=== PATIENT | female | born 1955 | race African-American/Black ===

== ENCOUNTER 2021-03-24 15:16 | Inpatient (IN) | payer MEDICARE, OTHER ==
[~2021-03-24] VITALS: Ht 172.7 cm; Wt 69.5 kg
[2021-03-24] VITALS (132 sets, daily range): BP systolic 96–148; BP diastolic 72–93; PULSE 75–95; O2SAT 45–100
--- NOTE | 2021-03-24 15:09 | NUR ---
RECEIVED REPORT FROM DEISY CARRINGTON AT [facility]. AWAITING ARRIVAL TO ICU 3. DISCUSSED WITH DEISY CONWAYLINE SUPERVISOR IF PT SHOULD BE PLACED ON ISOLATION ONCE ARRIVES HERE, SHE STATES YES D/T RAPID DECLINE FROM ADMISSION OF [facility] AT [facility].
--- NOTE | 2021-03-24 16:28 | NUR ---
RECEIVED REPORT FROM NICCI WITH [facility]. STATES WILL BE AT OUR FACILITY IN ABOUT TEN MINS. PT IS STILL STABLE ACCORDING TO EMS.
--- NOTE | 2021-03-24 16:40 | NUR ---
PT ARRVIES TO ICU 3 ON STRETCHER INTUBATED. PT TRANSFERRED TO ICU BED, PLACED ON FACILITIE'S VENT WITH SETTINGS: AC MODE, TV 400, PEEP 8, RR 20, FIO2 70%. PLACED ON BEDSIDE CONTINUOUS MONITOR. VSS. BOAT OUTFITTER PLACED. SEE IV GTT FLOWSHEET. FC PATENT AND DRAINING TO GRAVITY. OGT NOTED CLAMPED AT 67 CM. ETT 7.5 WITH 22 AT THE TEETH. BILATERAL CHEST RISE NOTED.
[2021-03-24 18:50] LABS: HEMOGLOBIN 10.7 g/dl (12.5-16.0); MEAN CELL VOLUME 82 fl (80.0-100.0); MEAN CORPUSCULAR HEMOGLOBIN 26 pg (27-31); MEAN CORPUSCULAR HGB CONC 32 g/dl (33.0-37.0); MEAN PLATELET VOLUME 11.8 fl (7.4-10.4); PLATELET COUNT 283 K/mm3 (130-400); REDCELL DISTRIBUTION WIDTH-CV 14.5 % (11.5-14.5)
[2021-03-24 18:52] LABS: INR 1.2 (0.8-3.0); PROTHROMBIN TIME 13.6 SECONDS (9.7-12.8)
[2021-03-24 18:53] LABS: PH 6 (5-8); SQUAMOUS EPITHELIAL 0-2 /hpf (0-10); URINE APPEARANCE Clear (CLEAR/HAZY); URINE BACTERIA Rare /hpf (NONE SEEN); URINE BILIRUBIN Negative (NEGATIVE); URINE BLOOD Negative (NEGATIVE); URINE COLOR Colorless (YELLOW); URINE GLUCOSE 3+ (NEGATIVE); URINE KETONE Negative (NEGATIVE); URINE LEUKOCYTE ESTERASE 1+ (NEGATIVE); URINE NITRATE Negative (NEGATIVE); URINE PROTEIN(semi-quant) Negative (NEGATIVE); URINE RBC 0-2 /hpf (0-2); URINE UROBILINOGEN Negative (NEGATIVE)
[2021-03-24 19:00] LABS: BILIRUBIN,TOTAL 0.3 mg/dL (0.2-1.2); C-REACTIVE PROTEIN 20.64 mg/dL (0.00-0.50); CALCIUM 9.1 mg/dL (8.4-10.2); CREATININE, serum 0.95 mg/dL (0.57-1.11); MAGNESIUM 1.8 mg/dL (1.6-2.6); POTASSIUM 4.8 mmol/L (3.5-4.5); TOTAL PROTEIN 6.2 gm/dL (6.2-8.1)
[2021-03-24 19:12] LABS: TROPONIN-I 0.517 ng/mL (0.00-0.033)
[2021-03-24 19:17] LABS: HEMATOCRIT 33.8 % (37.0-47.0)
[2021-03-24 19:24] LABS: LYMPHOCYTE 9 % (20.0-51.0); NEUTROPHILS 89 % (42.0-75.2)
[2021-03-24 19:25] LABS: HYPOCHROMIA 2+
[2021-03-24 19:30] LABS: COLLECTION METHOD CATHETER
[2021-03-24] MEDS ORDERED: GLUCOSE TEST ST1 DEV ×2 (20:20→21:35)
[2021-03-24] MEDS ORDERED: AMOXICILLIN 50500 MG PO (20:22)
[2021-03-24] MEDS ORDERED: JARDIANCE10 (21:37)
[2021-03-24] MEDS ORDERED: PRINIVIL40 MG PO (21:38)
[2021-03-24] MEDS ORDERED: HCTZ 25MG TAB25 MG PO (21:38)
[2021-03-24] MEDS ORDERED: SINGULAIR 110 MG/TAB PO (21:40)
--- NOTE | 2021-03-24 22:57 | NUR ---
BREATH SOUNDS UN-IDENTIFIABLE; EXPIRATORY SOUND I'M NOT SURE WHAT TO LABEL . IT'S DEFINITELY NOT A WHEEZE. PEAK PRESSURES IN LOW 40S. NO KINK IN ET TUBE; PT NOT BITING; SUCTION WAS NON-PRODUCTIVE;
[2021-03-25] VITALS (573 sets, daily range): BP systolic 81–151; BP diastolic 42–86; PULSE 56–83; TEMP 96.4–97; O2SAT 58–100
--- NOTE | 2021-03-25 | NUR ---
TRYING TO REGULATE B/P. USE OF DOPAMINE AT LOW DOSE 2.5 MAINTAINS B/P AT 100 SYSTOLIC/ HOWEVER URINE OUT PUT IS 1700 IN 6 HOURS/ MD NOTIFIED/ ORDERS CHANGE
[2021-03-25 04:28] LABS: MEAN CELL VOLUME 83 fl (80.0-100.0); MEAN CORPUSCULAR HGB CONC 32 g/dl (33.0-37.0); MEAN PLATELET VOLUME 12.2 fl (7.4-10.4); PLATELET COUNT 301 K/mm3 (130-400); RED BLOOD COUNT 3.69 M/mm3 (4.10-5.30); REDCELL DISTRIBUTION WIDTH-CV 14.6 % (11.5-14.5)
[2021-03-25 04:49] LABS: HEMATOCRIT 30.7 % (37.0-47.0); HEMOGLOBIN 9.8 g/dl (12.5-16.0); MEAN CORPUSCULAR HEMOGLOBIN 27 pg (27-31)
[2021-03-25 04:57] LABS: C-REACTIVE PROTEIN 20.74 mg/dL (0.00-0.50); CALCIUM 8.7 mg/dL (8.4-10.2); CREATININE, serum 0.82 mg/dL (0.57-1.11); MAGNESIUM 1.8 mg/dL (1.6-2.6); POTASSIUM 3.9 mmol/L (3.5-4.5)
[2021-03-25 05:08] LABS: TROPONIN-I 6 HR POST INITIAL 0.178 ng/mL (0.00-0.033)
--- NOTE | 2021-03-25 05:14 | NUR ---
PATIENT PRONE NO SEDATION VACATION
[2021-03-25 05:22] LABS: BAND 2 % (0-10); EOSINOPHIL 1 % (0-4); LYMPHOCYTE 9 % (20.0-51.0); NEUTROPHILS 84 % (42.0-75.2)
[2021-03-25 05:23] LABS: ANISOCYTOSIS 1+; OVALOCYTES 1+; POIKILOCYTOSIS 1+
[2021-03-25 05:51] LABS: ARTERIAL BLD GAS O2 SATURATION 93.3 % (92-100); ARTERIAL BLD GAS TCO2 CT 22.1; ARTERIAL BLOOD GAS BASE EXCESS -2.5 (-2-2); ARTERIAL BLOOD GAS HCO3 21.1 meq/L (22-26); ARTERIAL BLOOD GAS PCO2 32.1 mmHg (35-45); ARTERIAL BLOOD GAS PO2 68.8 mmHg (80-100); ARTERIAL BLOOD GAS pH 7.44 (7.35-7.45)
--- NOTE | 2021-03-25 07:00 | NUR ---
RECEIVED REPORT FROM DEISY ACEVES. PT RESTING IN PRONE POSITION WITH VENT SETTINGS: AC, TV 400, PEE 8, RR 20, FIO2 70%. FC PATENT AND DRAINING TO GRAVITY. OGT CLAMPED. SILHOUETTE ARTIST IN PLACE. VSS. SEE GTT FLOWSHEET.
--- NOTE | 2021-03-25 09:21 | NUR ---
PT UNPRONED AT THIS TIME. TOLERATED WELL. VSS.
--- NOTE | 2021-03-25 12:57 | NUR ---
TF STARTED AT 15ML/HR PER ORDERS.
--- NOTE | 2021-03-25 14:10 | NUR ---
SW called patient's spouse Jonathan [phone] to complete intake. Spouse was hesitant to complete intake due to believing that SW was a scammer attempting to obtain patient's personal information. SW provided spouse with call back number and verified credentials with spouse. Spouse called back and intake questions proceeded. After first question for verification spouse asked SW why she was asking all these questions. SW provided information on intake process for all patients. Spouse stated he will call back the same number tomorrow to answer any questions and to ensure the call was not a scam. FRANCIS called nurse in ICU to inquire about conversation with spouse about patient's care. Nurse provided conversation with spouse went okay and there were no noted concerns. SW will continue to follow up with spouse to complete intake.
--- NOTE | 2021-03-25 14:10 | NUR ---
Dr. Chan at bedside to place a femoral line; tolerated well and ok to use per Physician.
--- NOTE | 2021-03-25 15:50 | NUR ---
RIJ CENTRAL LINE PLACED AT [facility] AND LT SUBCLAVIAN CENTRAL LINE PLACED BY DR VERAS LAST NIGHT, WERE BOTH DCd AFTER THE LT FEMORAL CENTRAL LINE WAS IN PLACE, PER DR CHANG. BOTH THE RIJ AND LT SUBCLAVIAN CENTRAL LINES WERE GOING THE WRONG DIRECTION. LAKSHMI PRESSURE HELD TO BOTH SITES AT DIFFERENT TIMES FOR FIVE MINUTES A PIECE. MINIMAL BLEEDING NOTED AT THIS TIME. WILL MONITOR CLOSELY. VSS.
--- NOTE | 2021-03-25 16:30 | NUR ---
PT PRONED AT THIS TIME. PT FOLLOWS COMMANDS AND TURNS HEAD WHEN SPOKEN TO. PT ABLE TO FALL BACK TO SLEEP ONCE SETTLED. TOLERATED WELL. VSS. FIO2 DECREASED TO 50%, PEEP 6.
--- NOTE | 2021-03-25 20:07 | NUR ---
Patient proned and repositioned. Patint intubated and sedated. Tolerating well.
[2021-03-26] VITALS (700 sets, daily range): BP systolic 77–137; BP diastolic 45–86; PULSE 66–96; TEMP 96.9–98.5; O2SAT 77–100
[2021-03-26 06:15] LABS: MEAN CELL VOLUME 85 fl (80.0-100.0); MEAN CORPUSCULAR HGB CONC 31 g/dl (33.0-37.0); MEAN PLATELET VOLUME 12.6 fl (7.4-10.4); PLATELET COUNT 256 K/mm3 (130-400); RED BLOOD COUNT 3.49 M/mm3 (4.10-5.30); REDCELL DISTRIBUTION WIDTH-CV 14.8 % (11.5-14.5)
[2021-03-26 06:20] LABS: HEMATOCRIT 29.8 % (37.0-47.0); HEMOGLOBIN 9.2 g/dl (12.5-16.0); MEAN CORPUSCULAR HEMOGLOBIN 26 pg (27-31)
[2021-03-26 06:36] LABS: C-REACTIVE PROTEIN 9.4 mg/dL (0.00-0.50); CALCIUM 8.1 mg/dL (8.4-10.2); CREATININE, serum 0.79 mg/dL (0.57-1.11); MAGNESIUM 1.9 mg/dL (1.6-2.6); PHOSPHOROUS 2.8 mg/dL (2.3-4.7); POTASSIUM 3.2 mmol/L (3.5-4.5)
--- NOTE | 2021-03-26 06:38 | NUR ---
Patient prone during night. Repositioned. Patient remains on levophed.
[2021-03-26 06:48] LABS: ARTERIAL BLD GAS TCO2 CT 22.2; ARTERIAL BLOOD GAS BASE EXCESS -3.1 (-2-2); ARTERIAL BLOOD GAS HCO3 21.2 meq/L (22-26); ARTERIAL BLOOD GAS PCO2 34.7 mmHg (35-45)
--- NOTE | 2021-03-26 07:00 | NUR ---
RECEIVED REPORT FROM DEISY GARCIA. PT RESTING IN PRONE POSITION. VENT SETTINGS: AC, TV 400, FIO2 50%, PEEP 5, RR 20. FC PATENT AND DRAINING TO GRAVITY. ANNOUNCER IN PLACE. MITTS IN PLACE. OGT WITH TF INFUSING AT 31 ML/HR. VSS. SEE GTT FLOWSHEET.
--- NOTE | 2021-03-26 07:03 | NUR ---
Report given to DEISY Adams
[2021-03-26 07:14] LABS: HYPOCHROMIA 3+; LYMPHOCYTE 11 % (20.0-51.0); NEUTROPHILS 82 % (42.0-75.2); PLATELET ESTIMATE NORMAL (NORMAL)
--- NOTE | 2021-03-26 08:26 | NUR ---
PT UNPRONED AT THIS TIME. TOLERATED WELL.
--- NOTE | 2021-03-26 12:18 | NUR ---
TF INCREASED TO 50 ML/HR PER ORDERS. RESIDUAL 30ML.
--- NOTE | 2021-03-26 15:27 | NUR ---
LT FEMORAL CENTRAL LINE DCd AT THIS TIME PER DR CHANG'S INSTRUCTIONS. LAKSHMI PRESSURE HELD FOR 10 MINS. SOME BLEEDING NOTED. DRESSING REPLACED AND WILL MONITOR CLOSELY FOR FURTHER BLEEDING. VSS. 4X4 AND TEGADERM IN PLACE.
--- NOTE | 2021-03-26 17:25 | NUR ---
PT AROUSES EASILY TO VERBAL STIMULI AND ATTEMPTS TO LIFT SELF OFF BED AND PULLS AGAINST RESTRAINTS. PT NODS HEAD OCCASSIONALLY TO QUESTIONS BUT NOT EVERY TIME. PT ABLE TO FALL BACK TO SLEEP WHEN NOT MESSED WITH.
--- NOTE | 2021-03-26 20:40 | NUR ---
Assessment complete and charted. Patient awakens but not following commands at this time. Repositioned.
[2021-03-27] VITALS (751 sets, daily range): BP systolic 96–136; BP diastolic 58–85; PULSE 71–90; TEMP 97.3–100.5; O2SAT 78–100
[2021-03-27 04:36] LABS: ARTERIAL BLD GAS O2 SATURATION 87.6 % (92-100); ARTERIAL BLOOD GAS BASE EXCESS -1.1 (-2-2); ARTERIAL BLOOD GAS HCO3 22.9 meq/L (22-26); ARTERIAL BLOOD GAS PCO2 36.4 mmHg (35-45); ARTERIAL BLOOD GAS PO2 54.6 mmHg (80-100); ARTERIAL BLOOD GAS pH 7.42 (7.35-7.45)
--- NOTE | 2021-03-27 05:31 | NUR ---
Sedation cut in half since 0503. Tube feeds off. Patient tolerating well. Answering questions.
[2021-03-27 05:52] LABS: MEAN CELL VOLUME 85 fl (80.0-100.0); MEAN CORPUSCULAR HGB CONC 31 g/dl (33.0-37.0); MEAN PLATELET VOLUME 12.4 fl (7.4-10.4); PLATELET COUNT 222 K/mm3 (130-400); RED BLOOD COUNT 3.31 M/mm3 (4.10-5.30); REDCELL DISTRIBUTION WIDTH-CV 14.8 % (11.5-14.5)
[2021-03-27 05:56] LABS: HEMATOCRIT 28.1 % (37.0-47.0); HEMOGLOBIN 8.6 g/dl (12.5-16.0); MEAN CORPUSCULAR HEMOGLOBIN 26 pg (27-31)
[2021-03-27 06:08] LABS: C-REACTIVE PROTEIN 9.3 mg/dL (0.00-0.50); CREATININE, serum 0.74 mg/dL (0.57-1.11); PHOSPHOROUS 1.6 mg/dL (2.3-4.7); POTASSIUM 3.9 mmol/L (3.5-4.5)
--- NOTE | 2021-03-27 06:09 | NUR ---
Patient had uneventful night. Sedation decreased this AM. patient continues to be able to rest without difficulty. BP stable, attempting to decrease levophed. Patient answers yes/no orientation questions correctly.
[2021-03-27 06:49] LABS: BAND 4 % (0-10); LYMPHOCYTE 8 % (20.0-51.0); NEUTROPHILS 85 % (42.0-75.2); PLATELET ESTIMATE NORMAL (NORMAL)
--- NOTE | 2021-03-27 07:23 | NUR ---
Report given to DEISY De Guzman
--- NOTE | 2021-03-27 08:30 | NUR ---
LEVOPHED STOPPED AT THIS TIME.
--- NOTE | 2021-03-27 09:00 | NUR ---
PATIENT DOES NOT DO WELL DURING WEANING TRIAL. SHE BECOMES TACHYPNEIC AND DRAWS LOW TIDAL VOLUMES.
--- NOTE | 2021-03-27 10:34 | NUR ---
key worker spoke with patient's spouse and confirmed patient's insurance as Medicare A/B and . Spouse verbalizes understanding of social workers role. Patient's primary care provider is Dr Mikaela Soares in [place], [place]. Spouse states that patient is retired and has been independent with all of her activities of daily living.
--- NOTE | 2021-03-27 11:00 | NUR ---
PATIENT DOING WELL WITHOUT LEVOPHED. SHE WAKES EASILY. ANSWERS YES/NO QUESTIONS APPROPRIATELY. FOLLOWS COMMANDS. WILL CONTINUE TO MONITOR.
--- NOTE | 2021-03-27 12:30 | NUR ---
UPDATE GIVEN TO DADA, DAUGHTER. PLAN OF CARE DISCUSSED AND QUESTIONS ANSWERED. SHE STATES THAT SHE WILL PASS ON THE UPDATE TO HER FATHER, PATIENT'S , CARI.
--- NOTE | 2021-03-27 18:00 | NUR ---
PATIENT DID WELL ON SPONTANEOUS BREATHING TRIAL THIS AFTERNOON. SEDATION WAS SHUT COMPLETELY OFF AND THEN PLACED IN SPONTANEOUS MODE WITH PRESSURE SUPPORT OF 8 AND PEEP OF 5. PATIENT DID WELL FOR APPROX 2 HRS, BUT THEN BECAME TACHYPNEIC WITH RR IN 50s. PATIENT PLACED BACK IN AC/VC MODE. ODD PIECE CHECKER AWARE OF SBT.
--- NOTE | 2021-03-27 19:45 | NUR ---
Assessment complete and charted. Patient alert and following commands.
[2021-03-28] VITALS (734 sets, daily range): BP systolic 91–127; BP diastolic 58–74; PULSE 65–93; TEMP 98.1–99.1; O2SAT 77–100
[2021-03-28 04:09] LABS: ARTERIAL BLD GAS O2 SATURATION 92.6 % (92-100); ARTERIAL BLD GAS TCO2 CT 22.9; ARTERIAL BLOOD GAS HCO3 21.7 meq/L (22-26); ARTERIAL BLOOD GAS PCO2 37.9 mmHg (35-45); ARTERIAL BLOOD GAS PO2 65.1 mmHg (80-100); ARTERIAL BLOOD GAS pH 7.38 (7.35-7.45)
--- NOTE | 2021-03-28 05:27 | NUR ---
Patient alert and orientated and follow commands on current sedation. Patient to attempt weaning trial this AM.
[2021-03-28 05:45] LABS: MEAN CELL VOLUME 88 fl (80.0-100.0); MEAN CORPUSCULAR HGB CONC 30 g/dl (33.0-37.0); MEAN PLATELET VOLUME 11.8 fl (7.4-10.4); PLATELET COUNT 166 K/mm3 (130-400); RED BLOOD COUNT 2.91 M/mm3 (4.10-5.30); REDCELL DISTRIBUTION WIDTH-CV 14.9 % (11.5-14.5)
[2021-03-28 05:49] LABS: HEMATOCRIT 25.7 % (37.0-47.0); HEMOGLOBIN 7.7 g/dl (12.5-16.0); MEAN CORPUSCULAR HEMOGLOBIN 26 pg (27-31)
[2021-03-28 06:00] LABS: C-REACTIVE PROTEIN 7.92 mg/dL (0.00-0.50); CALCIUM 7.8 mg/dL (8.4-10.2); CREATININE, serum 0.62 mg/dL (0.57-1.11); POTASSIUM 4.2 mmol/L (3.5-4.5)
--- NOTE | 2021-03-28 07:00 | NUR ---
RECEIVED REPORT FROM DEISY GARCIA. PER REPORT, PT HAS BEEN ON WANING TRIAL WITH SEDATION DOWN SINCE 544. PT AWAKE AND BREATHING ABOUT 30 BPM. HR 90-100. AIRPORT TRAFFIC CONTROLLER IN PLACE. VENT FIO2 AT 45%. FC PATENT AND DRAINING TO GRAVITY. TF WAS PLACED ON HOLD AT THE TIME OF WEANING TRIAL. SEE GTT FLOWSHEET.
--- NOTE | 2021-03-28 07:11 | NUR ---
Report given to DEIYS Adams
--- NOTE | 2021-03-28 08:25 | NUR ---
DR CHANG AT BEDSIDE FOR ASSESSMENT. STATES IS NOT EXTUBATING TODAY BUT WOULD LIKE PT TO RIDE ON THE WEANING TRIAL LONG SHE REMAINS CALM AND VSS. WILL MONITOR CLOSELY. PROVIDER ALSO STATES CAN RESTART TF AT THIS TIME. TF RESTARTED AT 50ML/HR PER ORDERS.
--- NOTE | 2021-03-28 08:50 | NUR ---
PER DR CHANG, INCREASED PEEP TO 8, R/T CXR AND ABG RESULTS THIS AM. VSS. PT REMAINS ON WEANING TRIAL. SEDATION REMAINS THE SAME, SEE GTT FLOWSHEET.
--- NOTE | 2021-03-28 09:21 | NUR ---
patient will not be extubated today, and will remain on cpap/psupp trial for as long as she can tolerate it. 8 at 45%.
--- NOTE | 2021-03-28 16:07 | NUR ---
RT NOT AVAIL
--- NOTE | 2021-03-28 17:00 | NUR ---
PT HAS BEEN ON WEANING TRIAL ALL DAY. PLAN TO PLACE BACK ON AC MODE AND INCREASE SEDATION ABOUT 1800 TONIGHT SO PT CAN REST THROUGHOUT THE NIGHT AND WILL TRY WEANING TRIAL AGAIN IN AM. PT AROUSES EASILY WHEN ENTERING ROOM AND FOLLOWS AL SIMPLE COMMANDS EASILY AND NODS HEAD APPROPRIATELY TO QUESTIONS. VSS. LEGAL OFFICER IN PLACE.
--- NOTE | 2021-03-28 18:10 | NUR ---
PT TURNED BACK TO AC MODE ON VENT: AC, TV 400, PEEP 8, RR 20, FIO2 35%. SEE GTT FLOWSHEET.
[2021-03-29] VITALS (898 sets, daily range): BP systolic 98–146; BP diastolic 58–78; PULSE 66–89; TEMP 98.2–99.2; O2SAT 85–100
[2021-03-29 04:00] LABS: MEAN CELL VOLUME 85 fl (80.0-100.0); MEAN CORPUSCULAR HGB CONC 30 g/dl (33.0-37.0); MEAN PLATELET VOLUME 11.8 fl (7.4-10.4); PLATELET COUNT 214 K/mm3 (130-400); RED BLOOD COUNT 3.21 M/mm3 (4.10-5.30)
[2021-03-29 04:06] LABS: C-REACTIVE PROTEIN 6.95 mg/dL (0.00-0.50); CREATININE, serum 0.68 mg/dL (0.57-1.11)
[2021-03-29 04:09] LABS: HEMATOCRIT 27.4 % (37.0-47.0); HEMOGLOBIN 8.3 g/dl (12.5-16.0); MEAN CORPUSCULAR HEMOGLOBIN 26 pg (27-31)
--- NOTE | 2021-03-29 05:00 | NUR ---
PATIENT SEDATION OFF SINCE 344, PLACED ON SPONTANEOUS VENTALATION BY RT AND TOLERATING AT THIS TIME, PATIENT NODS HEAD IN UNDERSTANDING OF POC.
[2021-03-29 06:50] LABS: ARTERIAL BLD GAS O2 SATURATION 89.9 % (92-100); ARTERIAL BLD GAS TCO2 CT 28.9; ARTERIAL BLOOD GAS BASE EXCESS 4.5 (-2-2); ARTERIAL BLOOD GAS HCO3 27.8 meq/L (22-26); ARTERIAL BLOOD GAS PCO2 36.7 mmHg (35-45); ARTERIAL BLOOD GAS PO2 56.8 mmHg (80-100)
--- NOTE | 2021-03-29 08:10 | NUR ---
All sedation currenlty on standby. Patient opens eyes spontaneously and follows simple commands appropriately. All extremities observed moving independently. Per Dr. Rhodes will return patient to AC mode on ventilator due to worsening pneumonia on a.m. chest xray. Will plan to prone this evening. Instructed per Dr. Rhodes to Re-start sedation at versed 5mg/hr and Fentanyl 125 mcg/hr. Will continue to monitor.
[2021-03-29 11:46] LABS: ARTERIAL BLD GAS O2 SATURATION 92.5 % (92-100); ARTERIAL BLD GAS TCO2 CT 22.4; ARTERIAL BLOOD GAS BASE EXCESS -2.4 (-2-2); ARTERIAL BLOOD GAS HCO3 21.4 meq/L (22-26); ARTERIAL BLOOD GAS PCO2 33.3 mmHg (35-45); ARTERIAL BLOOD GAS pH 7.43 (7.35-7.45)
--- NOTE | 2021-03-29 13:09 | NUR ---
RT NOT AVAIL
--- NOTE | 2021-03-29 13:10 | NUR ---
RT NOT AVAIL
--- NOTE | 2021-03-29 16:02 | NUR ---
RT NOT AVAIL
--- NOTE | 2021-03-29 17:00 | NUR ---
Sedation vacation not performed due to being proned.
--- NOTE | 2021-03-29 19:10 | NUR ---
Report givent to DEISY Shanks. Patient care transfered.
--- NOTE | 2021-03-29 19:17 | NUR ---
Received report from DEISY Ritchie. All medications verified and all questions answered. Patient on fentanyl gtt at 7.5mls/hr and versed gtt at 6 mls/hr. Patient intubated with settings on AC mode with TV of 400, peep of 8, fio2 of 35% and rate of 20. Patient in proned position. Tube feeds running at 50mls/hr. VSS. Petersen patent to dependent drainage. Will resume care of patient at this time.
[2021-03-30] VITALS (732 sets, daily range): BP systolic 88–153; BP diastolic 59–86; PULSE 67–93; TEMP 98–99.6; O2SAT 70–100
[2021-03-30 05:23] LABS: ARTERIAL BLD GAS O2 SATURATION 89.5 % (92-100); ARTERIAL BLD GAS TCO2 CT 25.4; ARTERIAL BLOOD GAS BASE EXCESS -0.8 (-2-2); ARTERIAL BLOOD GAS HCO3 24.1 meq/L (22-26); ARTERIAL BLOOD GAS PCO2 40.8 mmHg (35-45); ARTERIAL BLOOD GAS PO2 58.2 mmHg (80-100); ARTERIAL BLOOD GAS pH 7.39 (7.35-7.45)
--- NOTE | 2021-03-30 05:28 | NUR ---
Sedation vacation not attempted at this time d/t patient being in proned position.
[2021-03-30 05:53] LABS: MEAN CELL VOLUME 86 fl (80.0-100.0); MEAN CORPUSCULAR HGB CONC 31 g/dl (33.0-37.0); MEAN PLATELET VOLUME 12.3 fl (7.4-10.4); PLATELET COUNT 211 K/mm3 (130-400); RED BLOOD COUNT 3.25 M/mm3 (4.10-5.30); REDCELL DISTRIBUTION WIDTH-CV 15.2 % (11.5-14.5)
[2021-03-30 06:05] LABS: CALCIUM 7.9 mg/dL (8.4-10.2); CREATININE, serum 0.62 mg/dL (0.57-1.11); POTASSIUM 3.9 mmol/L (3.5-4.5)
[2021-03-30 06:14] LABS: HEMATOCRIT 27.9 % (37.0-47.0); HEMOGLOBIN 8.6 g/dl (12.5-16.0); MEAN CORPUSCULAR HEMOGLOBIN 26 pg (27-31)
--- NOTE | 2021-03-30 07:00 | NUR ---
Resumed care of PT. All lines, GTTs, tubes checked and verified. Pt is currently proned. VSS.
[2021-03-30 07:25] LABS: BAND 2 % (0-10); LYMPHOCYTE 9 % (20.0-51.0); NEUTROPHILS 84 % (42.0-75.2); PLATELET ESTIMATE NORMAL (NORMAL); POLYCHROMASIA 1+
--- NOTE | 2021-03-30 14:14 | NUR ---
Report given to trudy OLIVAS.
--- NOTE | 2021-03-30 16:56 | NUR ---
NO SEDATION VACATION AT THIS TIME D/T PT BEING PRONED. PT OPENS EYES TO PAIN AND DOES MOVE ALL EXTREMETIES. WILL CONTINUE TO MONTIOR.
[2021-03-31] VITALS (684 sets, daily range): BP systolic 78–128; BP diastolic 48–79; PULSE 70–95; TEMP 98.2–100; O2SAT 96–100
[2021-03-31 04:29] LABS: MEAN CELL VOLUME 86 fl (80.0-100.0); MEAN CORPUSCULAR HGB CONC 30 g/dl (33.0-37.0); MEAN PLATELET VOLUME 11.2 fl (7.4-10.4); PLATELET COUNT 215 K/mm3 (130-400); RED BLOOD COUNT 3.27 M/mm3 (4.10-5.30); REDCELL DISTRIBUTION WIDTH-CV 15.4 % (11.5-14.5)
[2021-03-31 04:32] LABS: HEMATOCRIT 28.1 % (37.0-47.0); HEMOGLOBIN 8.5 g/dl (12.5-16.0); MEAN CORPUSCULAR HEMOGLOBIN 26 pg (27-31)
[2021-03-31 04:45] LABS: CALCIUM 8.2 mg/dL (8.4-10.2); CREATININE, serum 0.64 mg/dL (0.57-1.11); POTASSIUM 4.1 mmol/L (3.5-4.5)
[2021-03-31 04:54] LABS: ANISOCYTOSIS 1+; BAND 4 % (0-10); HYPOCHROMIA 3+; LYMPHOCYTE 13 % (20.0-51.0); NEUTROPHILS 78 % (42.0-75.2); PLATELET ESTIMATE NORMAL (NORMAL)
--- NOTE | 2021-03-31 05:41 | NUR ---
PATIENT PRONE NO VACATION SEDATION PERFORMED
[2021-03-31 05:43] LABS: ARTERIAL BLD GAS O2 SATURATION 86.1 % (92-100); ARTERIAL BLD GAS TCO2 CT 26.2; ARTERIAL BLOOD GAS BASE EXCESS 0.5 (-2-2); ARTERIAL BLOOD GAS PCO2 39.5 mmHg (35-45); ARTERIAL BLOOD GAS PO2 49.8 mmHg (80-100); ARTERIAL BLOOD GAS pH 7.42 (7.35-7.45)
--- NOTE | 2021-03-31 06:30 | NUR ---
Patient did well overnight; vital signs within normal limits and she will open up her eyes spontaneously. No planned procedures today.
--- NOTE | 2021-03-31 19:58 | NUR ---
Sedation vacation not performed today, as patient opens eyes and responds to stimuli. Patient was also proned this afternoon so no sedation vacation was performed after she was proned.
[2021-04-01] VITALS (708 sets, daily range): BP systolic 92–135; BP diastolic 54–75; PULSE 65–98; TEMP 98–100.2; O2SAT 90–100
[2021-04-01 04:51] LABS: MEAN CELL VOLUME 86 fl (80.0-100.0); MEAN CORPUSCULAR HGB CONC 31 g/dl (33.0-37.0); MEAN PLATELET VOLUME 11.3 fl (7.4-10.4); PLATELET COUNT 200 K/mm3 (130-400); RED BLOOD COUNT 3.05 M/mm3 (4.10-5.30); REDCELL DISTRIBUTION WIDTH-CV 15.7 % (11.5-14.5)
[2021-04-01 04:54] LABS: HEMATOCRIT 26.2 % (37.0-47.0); HEMOGLOBIN 8.1 g/dl (12.5-16.0); MEAN CORPUSCULAR HEMOGLOBIN 27 pg (27-31)
[2021-04-01 05:05] LABS: CALCIUM 8.2 mg/dL (8.4-10.2); CREATININE, serum 0.63 mg/dL (0.57-1.11); POTASSIUM 4.2 mmol/L (3.5-4.5)
--- NOTE | 2021-04-01 05:05 | NUR ---
NO SEDATION VACATION PATIENT IS PRONE
[2021-04-01 05:06] LABS: ARTERIAL BLOOD GAS BASE EXCESS 6.2 (-2-2); ARTERIAL BLOOD GAS HCO3 30.4 meq/L (22-26); ARTERIAL BLOOD GAS pH 7.47 (7.35-7.45)
[2021-04-01 05:27] LABS: BAND 2 % (0-10); BASOPHIL 1 % (0-2); EOSINOPHIL 5 % (0-4); LYMPHOCYTE 26 % (20.0-51.0); METAMYELOCYTE 1 % (0-0); NEUTROPHILS 57 % (42.0-75.2)
[2021-04-01 05:28] LABS: ANISOCYTOSIS 1+; HYPOCHROMIA 3+; PLATELET ESTIMATE NORMAL (NORMAL)
[2021-04-01 05:31] LABS: OVALOCYTES 1+; STOMATOCYTE 1+; TARGET CELLS 1+
--- NOTE | 2021-04-01 07:00 | NUR ---
PT IS INTUBATED, SEDATED, AND PRONED. WILL CONTINUE TO MONITOR.
--- NOTE | 2021-04-01 16:41 | NUR ---
NO SEDATION VACATION AT THIS TIME DUE TO PT BEING PRONED. PT OPENS EYES TO VOICE, PT MOVES ALL EXTREMEMTIES, AND FOLLOWS COMMANDS. WILL CONTINUE TO MONITOR.
[2021-04-02] VITALS (430 sets, daily range): BP systolic 93–153; BP diastolic 58–90; PULSE 73–88; TEMP 98–99.6; O2SAT 89–100
[2021-04-02 03:06] LABS: ARTERIAL BLOOD GAS BASE EXCESS 6.8 (-2-2); ARTERIAL BLOOD GAS HCO3 32.5 meq/L (22-26); ARTERIAL BLOOD GAS PCO2 49.1 mmHg (35-45); ARTERIAL BLOOD GAS PO2 60.2 mmHg (80-100); ARTERIAL BLOOD GAS pH 7.44 (7.35-7.45)
[2021-04-02 04:09] LABS: BASO % 0.4 % (0.0-2.0); EOS # 0.1 K/mm3 (0.0-0.7); EOS % 2.9 % (0.0-4.0); GRAN # 3.2 K/mm3 (1.4-6.5); GRAN % 65.5 % (42.2-75.2); LYMPH # 1.2 K/mm3 (1.2-3.4); MEAN CELL VOLUME 87 fl (80.0-100.0); MEAN CORPUSCULAR HGB CONC 30 g/dl (33.0-37.0); MEAN PLATELET VOLUME 11.7 fl (7.4-10.4); MONO # 0.3 K/mm3 (0.1-0.6); MONO % 5.2 % (1.7-9.3); PLATELET COUNT 219 K/mm3 (130-400); RED BLOOD COUNT 3.13 M/mm3 (4.10-5.30); REDCELL DISTRIBUTION WIDTH-CV 16.1 % (11.5-14.5)
[2021-04-02 04:11] LABS: HEMATOCRIT 27.1 % (37.0-47.0); HEMOGLOBIN 8.2 g/dl (12.5-16.0); MEAN CORPUSCULAR HEMOGLOBIN 26 pg (27-31)
[2021-04-02 05:04] LABS: CALCIUM 8.5 mg/dL (8.4-10.2); CREATININE, serum 0.61 mg/dL (0.57-1.11)
--- NOTE | 2021-04-02 05:40 | NUR ---
SEDATION VACATION NOT DONE DUE TO PT IN PRONE POSITION. PT FOLLOWS COMMANDS AND MOVES EXTREMITIES ON CURRENT SEDATION.
--- NOTE | 2021-04-02 08:45 | NUR ---
Tolerated unproning well; VS stable. Patient opens eyes spontaneously. Lifted arms off of bed when asked to wiggle fingers but would not follow any other commands. Will continue to monitor.
--- NOTE | 2021-04-02 13:52 | NUR ---
Patient still on mechanical vent
--- NOTE | 2021-04-02 15:21 | NUR ---
Updated family on paitent status; all questions and concerns addressed at this time.
--- NOTE | 2021-04-02 17:30 | NUR ---
Sedation vacation not done due to being proned.
--- NOTE | 2021-04-02 17:30 | NUR ---
Patient on a weaning trial for approximately 45 min and sedation has been reduced significantly. Patient awake and alert and following commands. Will prone patient at this time per Dr. Rhodes. Sedation increased at this time due to patient being more alert than ideal for placing in the prone position.
[2021-04-03] VITALS (877 sets, daily range): BP systolic 92–112; BP diastolic 57–69; PULSE 68–88; TEMP 97.6–98.9; O2SAT 96–100
[2021-04-03 03:09] LABS: ARTERIAL BLD GAS O2 SATURATION 98.4 % (92-100); ARTERIAL BLD GAS TCO2 CT 30.8; ARTERIAL BLOOD GAS BASE EXCESS 4.9 (-2-2); ARTERIAL BLOOD GAS HCO3 29.4 meq/L (22-26); ARTERIAL BLOOD GAS PCO2 43.6 mmHg (35-45); ARTERIAL BLOOD GAS pH 7.45 (7.35-7.45)
[2021-04-03 03:13] LABS: ARTERIAL BLOOD GAS PO2 132.5 mmHg (80-100)
[2021-04-03 04:53] LABS: BASO % 0.2 % (0.0-2.0); EOS # 0.1 K/mm3 (0.0-0.7); EOS % 2.4 % (0.0-4.0); GRAN # 2.9 K/mm3 (1.4-6.5); GRAN % 69.1 % (42.2-75.2); LYMPH % 22.6 % (20.0-51.0); MEAN CELL VOLUME 87 fl (80.0-100.0); MEAN CORPUSCULAR HGB CONC 30 g/dl (33.0-37.0); MEAN PLATELET VOLUME 11.6 fl (7.4-10.4); MONO # 0.2 K/mm3 (0.1-0.6); MONO % 4.5 % (1.7-9.3); PLATELET COUNT 206 K/mm3 (130-400); RED BLOOD COUNT 2.98 M/mm3 (4.10-5.30); REDCELL DISTRIBUTION WIDTH-CV 15.9 % (11.5-14.5)
[2021-04-03 04:56] LABS: HEMATOCRIT 25.9 % (37.0-47.0); HEMOGLOBIN 7.8 g/dl (12.5-16.0); MEAN CORPUSCULAR HEMOGLOBIN 26 pg (27-31)
[2021-04-03 05:10] LABS: CALCIUM 8.4 mg/dL (8.4-10.2); CREATININE, serum 0.59 mg/dL (0.57-1.11); POTASSIUM 4.2 mmol/L (3.5-4.5)
--- NOTE | 2021-04-03 05:39 | NUR ---
SEDATION VACATION NOT DONE DUE TO PRONE POSITION. PT FOLLOWS COMMANDS AND MOVES EXTREMITIES AT CURRENT SEDATION.
--- NOTE | 2021-04-03 16:10 | NUR ---
Spoke with Mr. Arechiga, PTs . Gave updates that included her sedation status, that she is able to follow all commands and answers questions by nodding. Let the family know that she recieved a bed bath today. Explained about the weaning trial this morning and how she is not ready to come off the ventilator due to her breathing too fast and not taking in enough volume. Explained that her chest xray showed some improvement of her pneumonia from yesterdays.
--- NOTE | 2021-04-03 17:19 | NUR ---
PT IS CURRENTLY LIGHTLY SEDATED. ABLE TO FOLLOW ALL COMMANDS
--- NOTE | 2021-04-03 18:24 | NUR ---
PTs sedation was cut in half for weaning process. PT was awake and alert, able to follow commands. PT was placed on BIPAP support. PT was breathing too fast and not pulling in enough tidal volume and support had to be increased twice. For this reason, the weaning process was stopped and the PT was placed back on AC mode, and sedation placed at the rate it was before for comfort.
[2021-04-04] VITALS (757 sets, daily range): BP systolic 95–123; BP diastolic 54–84; PULSE 65–80; TEMP 97.6–99.1; O2SAT 92–100
[2021-04-04 05:38] LABS: MEAN CELL VOLUME 86 fl (80.0-100.0); MEAN CORPUSCULAR HGB CONC 30 g/dl (33.0-37.0); MEAN PLATELET VOLUME 11.9 fl (7.4-10.4); PLATELET COUNT 239 K/mm3 (130-400); RED BLOOD COUNT 2.95 M/mm3 (4.10-5.30); REDCELL DISTRIBUTION WIDTH-CV 15.9 % (11.5-14.5)
[2021-04-04 05:41] LABS: HEMATOCRIT 25.3 % (37.0-47.0); HEMOGLOBIN 7.6 g/dl (12.5-16.0); MEAN CORPUSCULAR HEMOGLOBIN 26 pg (27-31)
[2021-04-04 05:47] LABS: CALCIUM 8.5 mg/dL (8.4-10.2); CREATININE, serum 0.57 mg/dL (0.57-1.11); POTASSIUM 4.1 mmol/L (3.5-4.5)
[2021-04-04 05:53] LABS: ARTERIAL BLD GAS O2 SATURATION 98.5 % (92-100); ARTERIAL BLD GAS TCO2 CT 31.3; ARTERIAL BLOOD GAS BASE EXCESS 5.5 (-2-2); ARTERIAL BLOOD GAS PO2 114.7 mmHg (80-100); ARTERIAL BLOOD GAS pH 7.45 (7.35-7.45)
[2021-04-04 06:18] LABS: BAND 7 % (0-10); EOSINOPHIL 5 % (0-4); LYMPHOCYTE 31 % (20.0-51.0); NEUTROPHILS 51 % (42.0-75.2)
[2021-04-04 06:19] LABS: ANISOCYTOSIS 1+; HYPOCHROMIA 3+; PLATELET ESTIMATE NORMAL (NORMAL)
--- NOTE | 2021-04-04 08:43 | NUR ---
0843: Started weaning process. GTTs titrated as needed for the PT to wake up. 1015: PT was unable to wean off the ventilator, GTTs titrated up as needed for comfort.
--- NOTE | 2021-04-04 17:00 | NUR ---
PT IS LIGHTLY SEDATED. FOLLOWS ALL COMMANDS.
[2021-04-05] VITALS (683 sets, daily range): BP systolic 108–124; BP diastolic 65–74; PULSE 73–89; TEMP 98.2–99.8; O2SAT 97–100
[2021-04-05 03:22] LABS: ARTERIAL BLD GAS TCO2 CT 33.1; ARTERIAL BLOOD GAS BASE EXCESS 8.6 (-2-2); ARTERIAL BLOOD GAS HCO3 31.9 meq/L (22-26); ARTERIAL BLOOD GAS PCO2 38.6 mmHg (35-45); ARTERIAL BLOOD GAS pH 7.54 (7.35-7.45)
[2021-04-05 03:23] LABS: ARTERIAL BLOOD GAS PO2 145.9 mmHg (80-100)
[2021-04-05 05:51] LABS: MEAN CELL VOLUME 89 fl (80.0-100.0); MEAN CORPUSCULAR HGB CONC 30 g/dl (33.0-37.0); MEAN PLATELET VOLUME 11.2 fl (7.4-10.4); PLATELET COUNT 234 K/mm3 (130-400); RED BLOOD COUNT 2.93 M/mm3 (4.10-5.30); REDCELL DISTRIBUTION WIDTH-CV 15.9 % (11.5-14.5)
[2021-04-05 05:58] LABS: HEMOGLOBIN 7.7 g/dl (12.5-16.0); MEAN CORPUSCULAR HEMOGLOBIN 26 pg (27-31)
[2021-04-05 06:28] LABS: CALCIUM 8.4 mg/dL (8.4-10.2); CREATININE, serum 0.6 mg/dL (0.57-1.11); POTASSIUM 3.8 mmol/L (3.5-4.5)
[2021-04-05 08:43] LABS: BAND 1 % (0-10); EOSINOPHIL 3 % (0-4); LYMPHOCYTE 34 % (20.0-51.0); NEUTROPHILS 60 % (42.0-75.2); NUCLEATED RED BLOOD CELL 1 (0-6)
[2021-04-05 08:47] LABS: ANISOCYTOSIS 1+; HYPOCHROMIA 3+; PLATELET ESTIMATE NORMAL (NORMAL)
--- NOTE | 2021-04-05 10:05 | NUR ---
gas worker present while physician makes phone call to patient's spouse. All questions and concerns answered by physician. Patient will plan on will to continue extubation trials but if unsuccessful, trach and peg next week.
--- NOTE | 2021-04-05 21:31 | NUR ---
PULSE IS BRADYCARDIC/ B/P IS ELEVATED/ MEDICATION REDUCED IN DOSAGE/ WILL CONTINUE TO MONITOR/ PATIENT SEDATED AWAKENS EASILY
--- NOTE | 2021-04-05 21:40 | NUR ---
VOID LAST NOTE WRONG PATIENT
[2021-04-06] VITALS (766 sets, daily range): BP systolic 99–140; BP diastolic 60–76; PULSE 80–97; TEMP 98.6–100; O2SAT 84–100
[2021-04-06 02:27] LABS: ARTERIAL BLD GAS O2 SATURATION 97.6 % (92-100); ARTERIAL BLD GAS TCO2 CT 29.2; ARTERIAL BLOOD GAS BASE EXCESS 4.1 (-2-2); ARTERIAL BLOOD GAS PCO2 38.9 mmHg (35-45); ARTERIAL BLOOD GAS pH 7.48 (7.35-7.45)
[2021-04-06 04:38] LABS: MEAN CELL VOLUME 87 fl (80.0-100.0); MEAN CORPUSCULAR HGB CONC 30 g/dl (33.0-37.0); PLATELET COUNT 257 K/mm3 (130-400); RED BLOOD COUNT 3.34 M/mm3 (4.10-5.30); REDCELL DISTRIBUTION WIDTH-CV 16.1 % (11.5-14.5)
[2021-04-06 04:40] LABS: HEMATOCRIT 29.2 % (37.0-47.0); HEMOGLOBIN 8.6 g/dl (12.5-16.0); MEAN CORPUSCULAR HEMOGLOBIN 26 pg (27-31)
[2021-04-06 04:52] LABS: CALCIUM 8.6 mg/dL (8.4-10.2); CREATININE, serum 0.58 mg/dL (0.57-1.11); PHOSPHOROUS 3.5 mg/dL (2.3-4.7); POTASSIUM 4.2 mmol/L (3.5-4.5)
[2021-04-06 04:59] LABS: ANISOCYTOSIS 1+; BASOPHIL 1 % (0-2); EOSINOPHIL 4 % (0-4); HYPOCHROMIA 3+; LYMPHOCYTE 32 % (20.0-51.0); METAMYELOCYTE 5 % (0-0); NEUTROPHILS 56 % (42.0-75.2); PLATELET ESTIMATE NORMAL (NORMAL); TEAR DROP CELLS 1+
--- NOTE | 2021-04-06 05:23 | NUR ---
PATIENT HAS AWAKENED BECAME ALERT DURING ALL STAFF VISITS WITH PATIENT. AFTER AWAKENING PATIENT WILL FOLLOW DIRECTIONS AND MAKE ATTEMPTS TO COMMUNICATE
--- NOTE | 2021-04-06 09:30 | NUR ---
Sedation reduced for CPAP trial. Will continue to monitor.
--- NOTE | 2021-04-06 11:00 | NUR ---
Sedation increased back to previous settings due to tachypnea and frequent coughing against the ventilator.
--- NOTE | 2021-04-06 14:00 | NUR ---
Dr. Gonsales and Dr. Morgan made aware about plan for trach and peg on Friday.
--- NOTE | 2021-04-06 14:00 | NUR ---
Patient resting with eyes shut, however she is lightly sedated and will open eyes to speech and follow simple commands appropriately. Will continue to monitor.
[2021-04-06 15:26] LABS: ALBUMIN 2.2 gm/dL (3.4-4.8); BILIRUBIN,DIRECT 0.1 mg/dL (0.0-0.5); BILIRUBIN,TOTAL 0.3 mg/dL (0.2-1.2)
--- NOTE | 2021-04-06 20:03 | NUR ---
Assessment complete and charted. Patient alert and following commands. Repositioned at this time.
[2021-04-07] VITALS (723 sets, daily range): BP systolic 83–174; BP diastolic 49–82; PULSE 62–83; TEMP 99.3–100.9; O2SAT 83–100
[2021-04-07 05:39] LABS: ARTERIAL BLD GAS O2 SATURATION 97.4 % (92-100); ARTERIAL BLD GAS TCO2 CT 30.2; ARTERIAL BLOOD GAS BASE EXCESS 4.9 (-2-2); ARTERIAL BLOOD GAS PCO2 40.9 mmHg (35-45); ARTERIAL BLOOD GAS pH 7.47 (7.35-7.45)
--- NOTE | 2021-04-07 05:57 | NUR ---
Patient alert and following commands on current sedation. Patient does not maintain tidal volumes on SV mode.
[2021-04-07 06:05] LABS: MEAN CELL VOLUME 88 fl (80.0-100.0); MEAN CORPUSCULAR HGB CONC 30 g/dl (33.0-37.0); MEAN PLATELET VOLUME 11.4 fl (7.4-10.4); PLATELET COUNT 272 K/mm3 (130-400); RED BLOOD COUNT 3.11 M/mm3 (4.10-5.30); REDCELL DISTRIBUTION WIDTH-CV 16.2 % (11.5-14.5)
[2021-04-07 06:16] LABS: HEMATOCRIT 27.5 % (37.0-47.0); HEMOGLOBIN 8.1 g/dl (12.5-16.0); MEAN CORPUSCULAR HEMOGLOBIN 26 pg (27-31)
[2021-04-07 06:27] LABS: CALCIUM 8.6 mg/dL (8.4-10.2); CREATININE, serum 0.59 mg/dL (0.57-1.11); POTASSIUM 4.1 mmol/L (3.5-4.5)
--- NOTE | 2021-04-07 07:00 | NUR ---
Resumed care of PT. All lines, tubes, GTTs, vent checked and verified. VSS. Pt wakes easily when nurse enters room and sleeps between disturbances. Will do a weaning trial again today.
[2021-04-07 07:04] LABS: ANISOCYTOSIS 1+; BAND 6 % (0-10); EOSINOPHIL 3 % (0-4); HYPOCHROMIA 3+; LYMPHOCYTE 25 % (20.0-51.0); NEUTROPHILS 61 % (42.0-75.2); PLATELET ESTIMATE NORMAL (NORMAL)
--- NOTE | 2021-04-07 07:11 | NUR ---
Report given to DEISY Bermudez
--- NOTE | 2021-04-07 07:30 | NUR ---
Confirmed through notes that surgery is aware of TRACH/PEG Sunday 04/09, called consult by Erma OLIVAS.
--- NOTE | 2021-04-07 08:04 | NUR ---
PATIENT STRUGGLES WITH SUCCEFULLY COMPLETING 30 MINS OF WEANING TRIAL OF 04/06. PATIENT STRUGGLED TO COMPLETLY PULL VT AND MAINTAIN A RATE UNDER [address] CHANG FOR FURTHER WEANING ASSSSMENTS.
--- NOTE | 2021-04-07 10:30 | NUR ---
Dr. Rhodes spoke with the and duaghter and discussed the procedure TRACH/PEG and updated family on status of PT.
--- NOTE | 2021-04-07 11:00 | NUR ---
PTs sedation cut in half.Weaning trial unsuccessful. PT breathes too fast and not enough tidal volume. PT placed back on previous setting on vent. Will titrate GTTs and needed for comfort.
--- NOTE | 2021-04-07 17:00 | NUR ---
SEDATION VACATION NOT NEEDED AT THIS TIME. PT IS LIGHTLY SEDATED AND IS ALERT.
--- NOTE | 2021-04-07 18:20 | NUR ---
During hourly rounding, did a spot check TEMP, 100.9. Per standing orders, orders for blood culture, sputum, urine was collected and sent to lab. Unable to obtain stool sample at this time. PT was treated with Tylenol.
[2021-04-07 18:50] LABS: PH 7 (5-8); SQUAMOUS EPITHELIAL None Seen /hpf (0-10); URINE APPEARANCE Hazy (CLEAR/HAZY); URINE BACTERIA Rare /hpf (NONE SEEN); URINE BILIRUBIN Negative (NEGATIVE); URINE BLOOD Negative (NEGATIVE); URINE COLOR Yellow (YELLOW); URINE GLUCOSE Negative (NEGATIVE); URINE KETONE Negative (NEGATIVE); URINE LEUKOCYTE ESTERASE Trace (NEGATIVE); URINE NITRATE Negative (NEGATIVE); URINE PROTEIN(semi-quant) Negative (NEGATIVE)
[2021-04-07 19:27] LABS: COLLECTION METHOD CATHETER
--- NOTE | 2021-04-07 21:20 | NUR ---
Patient having low blood pressure readings despite decreasing sedation. Levophed initiated. Hospitalist notified about BP and UA results. Temp currenlty 99.4. Will hold off on initiating antibiotics at this time. Will continue to monitor.
--- NOTE | 2021-04-07 22:10 | NUR ---
updated on patient status; all questions and concerns addressed at this time.
[2021-04-08] VITALS (383 sets, daily range): BP systolic 97–133; BP diastolic 60–75; PULSE 75–99; TEMP 99.6–101.2; O2SAT 92–100
--- NOTE | 2021-04-08 04:00 | NUR ---
Hospitalist notified about temperature of 100.1. Copious oral secretions are noted. Patient has been having large amounts of or oral secretions, however consistency appears thicker and less clear than previously. Will obtain a sample of secretions to send to lab.
[2021-04-08 05:19] LABS: ARTERIAL BLD GAS O2 SATURATION 94.5 % (92-100); ARTERIAL BLD GAS TCO2 CT 28.3; ARTERIAL BLOOD GAS BASE EXCESS 3.4 (-2-2); ARTERIAL BLOOD GAS HCO3 27.2 meq/L (22-26); ARTERIAL BLOOD GAS PCO2 37.9 mmHg (35-45); ARTERIAL BLOOD GAS PO2 71.9 mmHg (80-100); ARTERIAL BLOOD GAS pH 7.47 (7.35-7.45)
[2021-04-08 05:27] LABS: MEAN CELL VOLUME 88 fl (80.0-100.0); MEAN CORPUSCULAR HGB CONC 30 g/dl (33.0-37.0); MEAN PLATELET VOLUME 11.6 fl (7.4-10.4); PLATELET COUNT 307 K/mm3 (130-400); RED BLOOD COUNT 3.09 M/mm3 (4.10-5.30); REDCELL DISTRIBUTION WIDTH-CV 15.9 % (11.5-14.5)
[2021-04-08 05:44] LABS: HEMATOCRIT 27.1 % (37.0-47.0); HEMOGLOBIN 8.1 g/dl (12.5-16.0); MEAN CORPUSCULAR HEMOGLOBIN 26 pg (27-31)
[2021-04-08 05:53] LABS: CALCIUM 8.5 mg/dL (8.4-10.2); CREATININE, serum 0.58 mg/dL (0.57-1.11)
[2021-04-08 06:27] LABS: BAND 17 % (0-10); BASOPHIL 1 % (0-2); EOSINOPHIL 6 % (0-4); LYMPHOCYTE 24 % (20.0-51.0); METAMYELOCYTE 3 % (0-0); NEUTROPHILS 42 % (42.0-75.2); PLATELET ESTIMATE NORMAL (NORMAL)
[2021-04-08 06:28] LABS: ANISOCYTOSIS 1+; HYPOCHROMIA 4+
--- NOTE | 2021-04-08 07:00 | NUR ---
Resumed care of PT. All lines, tubes, GTTs, TF and vent checked and verified. VSS. PT had an uneventful night despite low grade fever. PT is still having copious amounts of oral secretions. PT is a transfer from [facility] who came intubated with an ETT that does not have a high low for LIS. PT needs suctioning often. PT has a chux pad to collect secretions to prevent breakdown of skin from moisture.
--- NOTE | 2021-04-08 14:12 | NUR ---
Updated Mr. Jonathan Ferrell using Dr. Nolan notes as refernce.
--- NOTE | 2021-04-08 17:00 | NUR ---
PT is lightly sedated and follows all commands.
[2021-04-09] VITALS (430 sets, daily range): BP systolic 96–132; BP diastolic 51–74; PULSE 85–97; TEMP 98.5–101.1; O2SAT 88–100
--- NOTE | 2021-04-09 01:14 | NUR ---
NITHIN BAPTISTE NOTIFIED OF PERSISTENT FEBRILE STATE. SHE GIVES NO NEW ORDERS AT THIS TIME. CULTURES DRAWN ON 04/07 FOR FEVER. WILL CONTINUE TO MONITOR.
[2021-04-09 03:41] LABS: ARTERIAL BLD GAS TCO2 CT 28.5; ARTERIAL BLOOD GAS BASE EXCESS 3.1 (-2-2); ARTERIAL BLOOD GAS HCO3 27.2 meq/L (22-26); ARTERIAL BLOOD GAS PCO2 39.8 mmHg (35-45); ARTERIAL BLOOD GAS PO2 73.7 mmHg (80-100); ARTERIAL BLOOD GAS pH 7.45 (7.35-7.45)
[2021-04-09 05:03] LABS: MEAN CELL VOLUME 88 fl (80.0-100.0); MEAN CORPUSCULAR HGB CONC 30 g/dl (33.0-37.0); MEAN PLATELET VOLUME 11.1 fl (7.4-10.4); PLATELET COUNT 291 K/mm3 (130-400); RED BLOOD COUNT 2.79 M/mm3 (4.10-5.30); REDCELL DISTRIBUTION WIDTH-CV 15.9 % (11.5-14.5)
[2021-04-09 05:16] LABS: CALCIUM 8.4 mg/dL (8.4-10.2); CREATININE, serum 0.56 mg/dL (0.57-1.11); POTASSIUM 4.1 mmol/L (3.5-4.5)
[2021-04-09 05:22] LABS: HEMATOCRIT 24.4 % (37.0-47.0); HEMOGLOBIN 7.3 g/dl (12.5-16.0); MEAN CORPUSCULAR HEMOGLOBIN 26 pg (27-31)
[2021-04-09 06:09] LABS: BAND 4 % (0-10); LYMPHOCYTE 15 % (20.0-51.0); NEUTROPHILS 67 % (42.0-75.2)
[2021-04-09 06:10] LABS: ANISOCYTOSIS 1+; EOSINOPHIL 9 % (0-4); HYPOCHROMIA 3+; PLATELET ESTIMATE NORMAL (NORMAL); SCHISTOCYTES 1+
--- NOTE | 2021-04-09 07:26 | NUR ---
REPORT GIVEN TO DEISY BAPTISTE
--- NOTE | 2021-04-09 09:54 | NUR ---
REPORT RECEIVED FROM DEISY LANCE. BILATERAL WRIST RESTRAINTS IN PLACE. FC TO DEPENDENT DRAINAGE. PICC TO MARISELA WITH [employer] INFUSING; SEE GTT FLOWSHEET. 7.5 ETT 23CM AT LIP WITH CURRENT VENT SETTINGS; AC MODE, TV 350, PEEP 5, FIO2 35%, RATE 16. OG 60CM AT LIP WITH TF INFUSING AT 50ML/HR. PT LIES SUPINE WITH HOB ELEVATED. APPEARS TO BE RESTING COMFORTABLY. VITAL SIGNS STABLE.
--- NOTE | 2021-04-09 10:36 | NUR ---
THIS NURSE SPOKE WITH OR VARNISH FINISHER JEFFY TO COORDINATE A PLAN FOR PT TO GO TO SURGERY FOR TRACH AND PEG PLACEMENT TOMORROW. JEFFY STATES THAT SHE WILL CONTACT BOTH ENT AND GENERAL SURGERY TO PLAN AN OFFICIAL TIME FOR SURGERY TOMORROW.
--- NOTE | 2021-04-09 11:51 | NUR ---
Patient scheduled for a trach and peg tomorrow. Clinical referral faxed to [facility]
--- NOTE | 2021-04-09 14:36 | NUR ---
THIS NURSE SPOKE WITH PT'S ; CARI. LET CARI KNOW THAT PT IS SCHEDULED TO GO TO SURGERY AT 5PM AND THAT HE CAN COME IN AROUND 4PM. THIS NURSE ALSO EXPLAINED THAT ONCE PT COMES BACK FROM SURGERY THEN SHE WILL NO LONGER BE IN ISOLATION AND HE WILL BE ABLE TO VISIT ANYTIME DURING REGULAR VISITING HOURS. ACRI VERBALIZED UNDERSTAND.
--- NOTE | 2021-04-09 17:15 | NUR ---
NOT NECESSARY FOR PT AT THIS TIME. PT FOLLOWS COMMAND WITH EASE.
[2021-04-09 18:49] LABS: HEMATOCRIT 27.5 % (37.0-47.0); HEMOGLOBIN 8.2 g/dl (12.5-16.0)
[2021-04-10] VITALS (642 sets, daily range): BP systolic 100–162; BP diastolic 59–111; PULSE 86–112; TEMP 97.8–102.7; O2SAT 85–100
[2021-04-10 03:43] LABS: ARTERIAL BLD GAS O2 SATURATION 97.6 % (92-100); ARTERIAL BLD GAS TCO2 CT 26.2; ARTERIAL BLOOD GAS BASE EXCESS 0.7 (-2-2); ARTERIAL BLOOD GAS PCO2 38.4 mmHg (35-45); ARTERIAL BLOOD GAS PO2 100.1 mmHg (80-100); ARTERIAL BLOOD GAS pH 7.43 (7.35-7.45)
--- NOTE | 2021-04-10 06:35 | NUR ---
NO SEDATION VACATION PATIENT CAN BE ALERT AND AWAKE UPON WALKING INTO ROOM
[2021-04-10 07:48] LABS: MEAN CELL VOLUME 86 fl (80.0-100.0); MEAN CORPUSCULAR HGB CONC 30 g/dl (33.0-37.0); MEAN PLATELET VOLUME 11.7 fl (7.4-10.4); PLATELET COUNT 381 K/mm3 (130-400); RED BLOOD COUNT 2.97 M/mm3 (4.10-5.30)
[2021-04-10 07:59] LABS: HEMATOCRIT 25.6 % (37.0-47.0); HEMOGLOBIN 7.7 g/dl (12.5-16.0); MEAN CORPUSCULAR HEMOGLOBIN 26 pg (27-31)
[2021-04-10 08:01] LABS: CALCIUM 8.7 mg/dL (8.4-10.2); CREATININE, serum 0.57 mg/dL (0.57-1.11); POTASSIUM 4.2 mmol/L (3.5-4.5)
[2021-04-10 09:54] LABS: BAND 22 % (0-10); EOSINOPHIL 2 % (0-4); LYMPHOCYTE 18 % (20.0-51.0); MYELOCYTE 1 % (0-0); NEUTROPHILS 50 % (42.0-75.2)
[2021-04-10 09:55] LABS: HYPOCHROMIA 3+; PLATELET ESTIMATE NORMAL (NORMAL)
--- NOTE | 2021-04-10 11:56 | NUR ---
Patient scheduled for her Trach and Peg this afternoon at 1700. Phone call made to the patient's Jonathan who states he will arrive between [phone] to visit before the procedure. Informed Jonathan that a referral to [facility] has been started, who [facility] is and why she would need to go. All questions answered. Encouraged Jonathan that if he had any questions between now and this afternoon to reach out and my direct line was provided.
--- NOTE | 2021-04-10 16:30 | NUR ---
Patient's at bedside; all quesions and concerns addressed at this time.
--- NOTE | 2021-04-10 17:01 | NUR ---
Patient transported from ICU to OR. VS stable and patient alert and in no distress upon transfer.
--- NOTE | 2021-04-10 17:22 | NUR ---
pt in procedure at this time
--- NOTE | 2021-04-10 18:03 | NUR ---
Returned from OR to unit. VS stable upon arrival. Trach and peg site assessed with no concerns noted. Will continue to monitor.
--- NOTE | 2021-04-10 20:47 | NUR ---
Patient awake and tachpneic. Following commands and answer questions. Repositioned. Call light in reach.
[2021-04-11] VITALS (471 sets, daily range): BP systolic 100–117; BP diastolic 60–73; PULSE 86–105; TEMP 98.8–100.6; O2SAT 81–100
[2021-04-11 02:49] LABS: ARTERIAL BLD GAS TCO2 CT 26.2; ARTERIAL BLOOD GAS BASE EXCESS 0.9 (-2-2); ARTERIAL BLOOD GAS PCO2 38.4 mmHg (35-45); ARTERIAL BLOOD GAS PO2 96.7 mmHg (80-100); ARTERIAL BLOOD GAS pH 7.43 (7.35-7.45)
--- NOTE | 2021-04-11 05:02 | NUR ---
Patient awake and alert on current sedation. Any decrease in sedation patient coughing against vent and tachypneic 40s.
[2021-04-11 07:22] LABS: MEAN CELL VOLUME 86 fl (80.0-100.0); MEAN CORPUSCULAR HGB CONC 30 g/dl (33.0-37.0); MEAN PLATELET VOLUME 11.3 fl (7.4-10.4); PLATELET COUNT 372 K/mm3 (130-400); RED BLOOD COUNT 2.77 M/mm3 (4.10-5.30); REDCELL DISTRIBUTION WIDTH-CV 15.8 % (11.5-14.5)
--- NOTE | 2021-04-11 07:23 | NUR ---
Report given to DEISY Ritchie
[2021-04-11 07:24] LABS: HEMATOCRIT 23.9 % (37.0-47.0); HEMOGLOBIN 7.2 g/dl (12.5-16.0); MEAN CORPUSCULAR HEMOGLOBIN 26 pg (27-31)
[2021-04-11 07:32] LABS: CALCIUM 8.6 mg/dL (8.4-10.2); CREATININE, serum 0.56 mg/dL (0.57-1.11); POTASSIUM 3.5 mmol/L (3.5-4.5)
[2021-04-11 09:03] LABS: BAND 17 % (0-10); EOSINOPHIL 1 % (0-4); LYMPHOCYTE 11 % (20.0-51.0); NEUTROPHILS 61 % (42.0-75.2); PLATELET ESTIMATE NORMAL (NORMAL)
[2021-04-11 09:04] LABS: ANISOCYTOSIS 1+; OVALOCYTES 1+; SCHISTOCYTES 1+; TEAR DROP CELLS 1+
--- NOTE | 2021-04-11 09:30 | NUR ---
Sergei from [facility] arrives to unit to visit patient. Clinical updates printed and provided to him. Sergei states that he is going to work with his team to achieve a transfer to [facility] in [place] today. [facility] has no beds available.
--- NOTE | 2021-04-11 10:00 | NUR ---
Patient is following commands and not attempting to pull at tube or lines. Restraints removed and will continue to monitor patient for continued cooperation with staff and protection of lines and trach.
--- NOTE | 2021-04-11 10:39 | NUR ---
Sw present while Sergei from [facility] reaches out to the patient's Jonathan to inform his that [facility] can accept this patient today. Jonathan reports "my daughter has been looking for other facilities". This SW reached out to Jonathan to inform him that [facility] has a bed waiting for his . Jonathan reports to me that his daughter is looking for a different facility at this time due to "getting online and reading reviews about [facility], she does not like that place". Asked Jonathan what facilities she was looking at and he was unable to tell me. Educated him that due to bed shortages, it would be unlikely for them to find one. Jonathan reports that he is getting dressed now and will head up to the hospital. ICU director notified of the above and is going to reach out to the patient's daughter. Informed Skye that [facility] has a bed, the patient has a room number and [facility] would like for the patient to arrive at 1400. Per Sergei: RM #[id number] RN to RN #: [phone] [facility] [address] [address], [place] [address]
--- NOTE | 2021-04-11 11:15 | NUR ---
EMS contacted and scheduled a 1600 transfer to [facility] in [place] today.
--- NOTE | 2021-04-11 12:02 | NUR ---
RT UNAV WITH ANOTHER PT AT THIS TIME
--- NOTE | 2021-04-11 13:24 | NUR ---
Per Dr. Rocio burns to Resume lovenox and tube feeds.
--- NOTE | 2021-04-11 14:00 | NUR ---
Patient alert and watching TV. Follows commands and has been trying to mouth words to staff. VS stable at this time.
--- NOTE | 2021-04-11 14:03 | NUR ---
school social worker met with Sergei ([facility]) and patient's spouse and provided education on [facility] and acute rehab needs. Spouse verbalized understanding and that his concern is that hiw will be well cared for. Worker and Sergei provided written information on [facility]. Worker told spouse that [facility] ambulance will be transporting patient at 4:00pm today.Spouse verbalizes understanding and gives verbal and written consent for patient's transfer to [facility] in [place]. Worker contacted [facility] ambulance and provided transfer information. Worker contacted Dr Smith and advised of transfer information.
--- NOTE | 2021-04-11 17:00 | NUR ---
Left unit with EMS; Patient alert and in no distress with stable vital signs upon transfer.
--- NOTE | 2021-04-11 17:54 | NUR ---
PATIENT IS NO LONGER AT THIS FACILITY
--- NOTE | 2021-04-11 19:21 | NUR ---
Report called to primary nurse at [facility] in [place].
== END 2021-04-11 17:00 | DRG 4 ==
LOC: IMCU 15:16 → ICU 16:43
PROVIDERS: Internal Medicine; Internal Medicine Pulmonary Disease; Student in an Organized Health Care Education/Training Program; Surgery; ADMIT Internal Medicine
PROC: 5A1955Z Respiratory Ventilation, Greater than 96 Consecutive Hours (ICD-10-PCS; 2021-03-24)
PROC: 05HN33Z Insertion of Infusion Device into Left Internal Jugular Vein, Percutaneous Approach (ICD-10-PCS; 2021-03-24)
PROC: XW033E5 Introduction of Remdesivir Anti-infective into Peripheral Vein, Percutaneous Approach, New Technology Group 5 (ICD-10-PCS; 2021-03-24)
PROC: 06HY33Z Insertion of Infusion Device into Lower Vein, Percutaneous Approach (ICD-10-PCS; 2021-03-25)
PROC: 02HV33Z Insertion of Infusion Device into Superior Vena Cava, Percutaneous Approach (ICD-10-PCS; 2021-03-26)
PROC: 02HV33Z Insertion of Infusion Device into Superior Vena Cava, Percutaneous Approach (ICD-10-PCS; 2021-04-02)
PROC: 0DH64UZ Insertion of Feeding Device into Stomach, Percutaneous Endoscopic Approach (ICD-10-PCS; 2021-04-10)
PROC: 0B110F4 Bypass Trachea to Cutaneous with Tracheostomy Device, Open Approach (ICD-10-PCS; principal; 2021-04-10 17:00)
DX: U07.1 COVID-19 (principal); J12.82 Pneumonia due to coronavirus disease 2019; J96.01 Acute respiratory failure with hypoxia; I21.A1 Myocardial infarction type 2; T82.524A Displacement of infusion catheter, initial encounter; E11.9 Type 2 diabetes mellitus without complications; I10 Essential (primary) hypertension; E87.5 Hyperkalemia; G89.29 Other chronic pain; M79.7 Fibromyalgia; I95.9 Hypotension, unspecified; B96.1 Klebsiella pneumoniae [K. pneumoniae] as the cause of diseases classified elsewhere; E87.6 Hypokalemia; E83.39 Other disorders of phosphorus metabolism; D64.9 Anemia, unspecified; Y82.8 Other medical devices associated with adverse incidents; Z73.0 Burn-out
CPT/HCPCS: 99223-AI; 99231-AI; 99232-AI; 99233-AI; 99239; A7521; C1751; C1892; J0696; J1100; J1650; J1815; J1940; J2060; J2212; J2250; J2543; J2704; J3010; J3480; J7030; J7060; J8540; Q9967